=== PATIENT | male | born 1985 | race Caucasian/White ===

== ENCOUNTER 2017-01-26 20:45 | Emergency (ER) | payer OTHER ==
[2017-01-26 21:04] VITALS: BMI 25.8
[2017-01-26 21:06] VITALS: RESP 17; TEMP 98.1
--- NOTE | 2017-01-26 21:47 | ED PDOC ---
Arrival/HPI - General Chief Complaint: Male Genitourinary Time Seen by Provider: 01/26/17 21:12 Historian: Patient - History of Present Illness Narrative History of Present Illness (Text): 01/26/17 21:45 Eduardo Neil is a 31 year old male who presents to the Emergency department complaining of an area of bleeding to skin surface of the right scrotum. Patient states he noted some bleeding from pinpoint lesion to skin of the right scrotum and thinks he may have rubbed the area too vigorously with his pants. Patient states bleeding has since stopped. Patient denies any swelling to the area, nausea, vomiting, diarrhea, urinary symptoms, back pain, neck pain, headache, dizziness, or any other complaints. Time/Duration: Other (today) Symptom Onset: Gradual Symptom Course: Unchanged Activities at Onset: Rest, Light Context: Home Past Medical History - Provider Review Nursing Documentation Reviewed: Yes - Infectious Disease Hx of Infectious Diseases: None - Psychiatric Hx Substance Use: No - Anesthesia Hx Anesthesia: No Family/Social History - Physician Review Nursing Documentation Reviewed: Yes Family/Social History: No Known Family HX Smoking Status: Never Smoked Hx Alcohol Use: No Hx Substance Use: No Allergies/Home Meds Allergies/Adverse Reactions: Allergies No Known Allergies Allergy (Verified 01/26/17 21:03) Home Medications: Home Meds Medication Instructions Recorded Confirmed No Known Home Med 01/26/17 01/26/17 Review of Systems - Physician Review All systems were reviewed & negative as marked: Yes - Review of Systems Constitutional: Normal. absent: Fevers Eyes: Normal ENT: Normal Respiratory: Normal. absent: SOB Cardiovascular: Normal Gastrointestinal: Normal. absent: Abdominal Pain, Diarrhea, Nausea, Vomiting Genitourinary Male: Other (+area of bleeding to skin of right scrotum). absent : Dysuria, Frequency, Hematuria, Urinary Output Changes Musculoskeletal: Normal. absent: Back Pain Skin: Normal. absent: Rash Neurological: Normal. absent: Headache Endocrine: Normal Hemo/Lymphatic: Normal Psychiatric: Normal Physical Exam Vital Signs Reviewed: Yes Vital Signs Temp Pulse Resp BP Pulse Ox 01/26/17 22:19 65 17 123/87 97 01/26/17 21:06 98.1 F 63 17 122/85 98 Temperature: Afebrile Blood Pressure: Normal Pulse: Regular Respiratory Rate: Normal Appearance: Positive for: Well-Appearing, Non-Toxic, Comfortable Pain Distress: None Mental Status: Positive for: Alert and Oriented X 3 - Systems Exam Head: Present: Atraumatic, Normocephalic Pupils: Present: PERRL Extroacular Muscles: Present: EOMI Conjunctiva: Present: Normal Mouth: Present: Moist Mucous Membranes Neck: Present: Normal Range of Motion Genitourinary Male: Present: Other (Pinpoint hemangioma scabbed area to right scrotum, no active bleeding). No: Testicle Tenderness, Penile Swelling, Masses , Erythema, Testicle Swelling Upper Extremity: Present: Normal Inspection. No: Cyanosis, Edema Lower Extremity: Present: Normal Inspection. No: Edema Neurological: Present: GCS=15, CN II-XII Intact, Speech Normal Skin: Present: Warm, Dry, Normal Color. No: Rashes Psychiatric: Present: Alert, Oriented x 3, Normal Insight, Normal Concentration Medical Decision Making ED Course and Treatment: 01/26/17 21:45 Differential Diagnosis include but are not limited to: hemangioma of right scrotum Plan: -- Reassess and disposition Prior Visits: Notes and results from previous visits were reviewed. Progress Notes: Pinpoint scabbed area on right scrotum was cauterized with silver nitrate cautery. Good hemostasis. The patient was observed following procedure and no repeat episode of bleeding was noted. Patient tolerated the procedure well with no immediate complications. 01/26/17 22:15 Pt in no acute distress, no recurrence of bleeding. Pt was advised to avoid rubbing the area. Keep the area clean and dry. Pt instructed to f/u with physician within 1-2 days. - Scribe Statement The provider has reviewed the documentation as recorded by the Scribtato James All medical record entries made by the Louibtato were at my direction and personally dictated by me. I have reviewed the chart and agree that the record accurately reflects my personal performance of the history, physical exam, medical decision making, and the department course for this patient. I have also personally directed, reviewed, and agree with the discharge instructions and disposition. Disposition/Present on Arrival - Present on Arrival Any Indicators Present on Arrival: No History of DVT/PE: No History of Uncontrolled Diabetes: No Urinary Catheter: No History of Decub. Ulcer: No History Surgical Site Infection Following: None - Disposition Have Diagnosis and Disposition been Completed?: Yes Diagnosis: Hemangioma of skin, Avulsion, skin Disposition: HOME/ ROUTINE Disposition Time: 22:12 Patient Plan: Discharge Condition: GOOD Additional Instructions: Avoid rubbing or irritating the affected area/follow up with your doctor as needed Referrals: Hailey Aparicio, [Primary Care Provider] - Follow up with primary
[2017-01-26 22:19] VITALS: BP 123/87; PULSE 65; O2SAT 97
== END 2017-01-26 22:23 | disposition home or self-care (01) ==
LOC: ED 20:45
DX: D18.09 Hemangioma of other sites (principal); S31.30XA Unspecified open wound of scrotum and testes, initial encounter; X58.XXXA Exposure to other specified factors, initial encounter